=== PATIENT | male | born 1950 | race Caucasian/White ===

== ENCOUNTER → 2024-05-15 12:53 | Outpatient (CLI) | payer MEDICARE, OTHER, SELFPAY ==
--- NOTE | 2024-05-15 12:57 | DI.CT.S_ITS ---
PROCEDURE: CT UPPER EXT RIGHT ARTHROGRAM INDICATIONS: pain in right shoulder TECHNIQUE: After the intra-articular administration of 12 mL of dilute non-ionic contrast, 1-1.5 mm thick sections acquired from the acromioclavicular joint to the inferior scapula, with coronal and sagittal reformatting. COMPARISON: None. FINDINGS: Image quality: Excellent. Bones: Moderate degenerative changes acromioclavicular joint with inferior projecting osteophyte. No os acromiale. Type 1 acromion. No acute fracture or dislocation about the right shoulder. Small area of full-thickness chondral loss in the superior medial humeral head. Soft tissues: There is full-thickness tear at the critical zone of the posterior fiber of the supraspinatus, extending to the anterior fiber of the infraspinatus, measuring 2.0 cm on sagittal dimension. No tendon retraction. Small amount of contrast tracking along the myotendinous junction of the infraspinatus. The teres minor is unremarkable. Low-grade articular sided tear of the subscapularis. No significant fatty atrophy of the rotator cuff musculature. Anterior superior labral tear. The extra-articular biceps tendon, and the intra-articular biceps tendon are grossly intact. Intra-articular contrast distends the glenohumeral joint, and distends the subacromial/subdeltoid bursitis. Visualized right lung is unremarkable IMPRESSION: 1. 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 2. Mild chondrosis of the glenohumeral joint. 3. Full-thickness tear of the posterior fiber of the supraspinatus, extending to the anterior fiber of the infraspinatus. No tendon retraction. 4. Low-grade tear of the subscapularis. 5. Labral tear. Dictated by: Bessy Flores M.D. on 05/15/2024 at 16:38 Approved by: Besys Flores M.D. on 05/15/2024 at 16:48
--- NOTE | 2024-05-15 12:57 | DI.RAD.S_ITS ---
PROCEDURE: FL SHOULDER INJECTION MR/CT RT INDICATIONS: pain in right shoulder COMPARISON: [facility], CT, CT UPPER EXT RIGHT ARTHROGRAM, 05/15/2024, 13:44. TECHNIQUE: The indications, alternatives, benefits, risks, and complications of the procedure were explained to the patient. Written informed consent was obtained and placed in the chart. The shoulder was examined fluoroscopically and a site for needle placement chosen for entry into the glenohumeral joint from an anterior approach. The skin was prepped and draped in a sterile fashion, and 1% lidocaine infiltrated from skin down to joint capsule. A spinal needle was inserted into the glenohumeral joint, and a small amount of iodinated contrast media injected to confirm intra-articular placement of the needle tip. This was followed by approximately 12 mL of iodinated contrast. The needle was removed and a dressing was applied. The patient was given postprocedural instructions and sent to the CT suite for imaging. FINDINGS: A single fluoroscopic spot image demonstrates intra-articular location of injected iodinated contrast. IMPRESSION: Successful fluoroscopically guided administration of iodinated contrast solution into the shoulder joint for CT arthrogram. Dictated by: Khurram Allison M.D. on 05/15/2024 at 17:42 Approved by: Khurram Allison M.D. on 05/15/2024 at 17:44
--- NOTE | 2024-05-15 13:58 | PC.NURSE ---
Pt reports approx 20yr old cardiac stents. Unknown if compatable with MRI machine. Able to due CT exam, unable to do MRI.
[2024-05-15] MEDS: LIDOCAINE 1% 20 ML INJ (14:09)
== END ==
PROVIDERS: PCP Nurse Practitioner Family; Referring Provider Orthopaedic Surgery; Visit Provider Orthopaedic Surgery
DX: M75.121 Complete rotator cuff tear or rupture of right shoulder, not specified as traumatic (principal); S43.431A Superior glenoid labrum lesion of right shoulder, initial encounter; M25.511 Pain in right shoulder
CPT/HCPCS: 23350; 73040; 73200; Q9967